=== PATIENT | female | born 1985 | race Caucasian/White ===

== ENCOUNTER 2023-05-16 11:46 | Emergency (ER) | payer BC ==
[2023-05-16 13:43] VITALS: BP 132/85; PULSE 81
== END 2023-05-16 13:42 | disposition home or self-care (01) ==
LOC: JD.ED 11:46
DX: M25.512 Pain in left shoulder (principal); F17.210 Nicotine dependence, cigarettes, uncomplicated; Z88.0 Allergy status to penicillin; Z88.8 Allergy status to other drugs, medicaments and biological substances; Z79.899 Other long term (current) drug therapy; W19.XXXA Unspecified fall, initial encounter
CPT/HCPCS: 73030-26-LT; 73030-LT; 93005; 93010; 99282; 99284